=== PATIENT | female | born 1980 ===

== ENCOUNTER → 2020-08-02 | Outpatient (CLI) | payer MEDICAID ==
[~2020-08-02] VITALS: Ht 162.6 cm; Wt 86.6 kg
[~2020-08-02] MED LIST: FERROUS SULFAT325 MG ORAL; IBUPROFEN600 M1 ORAL; METFORMIN HCL500 M1 ORAL; NESINA25 MG PO; PROTONIX20 MG ORAL; VITAMIN D325 MC1 PO
[2020-08-02 13:54] VITALS: BP 125/73
--- NOTE | 2020-08-07 16:15 | Consultation ---
DATE OF CONSULTATION: 08/02/2020 CONSULTING PHYSICIAN: Alex Pérez MD CHIEF COMPLAINT: Abdominal pain. HISTORY OF PRESENT ILLNESS: This is a 40-year-old female with numerous medical problems, which I will dictate in a second, who was referred to us for evaluation of abdominal pain and GERD. Apparently, the patient was taking Zantac with some improvement in the past, but Zantac she is not using it anymore. The Protonix, that she is taking 20 mg a day, is not helping her that much. PAST MEDICAL HISTORY: 1. GERD. 2. Diabetes type 2. 3. Anemia. 4. Migraine headaches. PAST SURGICAL HISTORY: Cholecystectomy. MEDICATIONS: Please see medication reconciliation list. FAMILY HISTORY: Noncontributory. SOCIAL HISTORY: The patient denies any tobacco, alcohol, or IV drug abuse. ALLERGIES: Penicillin. REVIEW OF SYSTEMS: Positive for GERD, abdominal pain, nausea, and bloating. H. pylori negative breath test in the past. PHYSICAL EXAMINATION: VITAL SIGNS: Temperature 97.6, blood pressure 124/73, pulse 83, respirations 20. HEENT: Normocephalic and atraumatic. Sclerae are anicteric. NECK: Supple. No evidence of obvious lymphadenopathy. CARDIOVASCULAR: Regular rhythm. Plus S1, S2. LUNGS: Clear to auscultation bilaterally. ABDOMEN: Positive bowel sounds. Soft and nontender. No rebound. No guarding. No peritoneal sign. EXTREMITIES: No cyanosis. No clubbing. No edema. ASSESSMENT: This is a 40-year-old female with chronic GERD, not responding to PPI or Protonix. PLAN: The patient will need to be scheduled for endoscopy. We are going to try to get authorization for that. Meanwhile, we are going to give a trial of the Nexium which will work for her. The patient has also complained of bloating, gas, abdominal distention, highly suspicious for SIBO given the patient has history of diabetes and migraine headaches. Plan to start the patient on Xifaxan followed by [facility]. Alex Pérez M.D. DR: RICHARD JOB#: [id number] CC:
== END | disposition home or self-care (01) ==
LOC: PAN 13:17
DX: R10.9 Unspecified abdominal pain (principal)
CPT/HCPCS: G0463